=== PATIENT | female | born 1950 | race Caucasian/White ===

== ENCOUNTER 2018-08-01 16:17 | Outpatient (CLI) | payer MEDICARE, OTHER, SELFPAY ==
--- NOTE | 2018-08-01 16:00 | DI.CT_ITS ---
SYMPTOM/DIAGNOSIS: LLQ PAIN, R10.32, H/O DIVERTICULITIS ABDOMEN AND PELVIC CT: CT examination of the abdomen and pelvis was performed with intravenous infusion of 100 cc's of Omnipaque 350. Images obtained through the lung bases show an incompletely imaged nodule of the left lung base which measures at least 6 mm. in diameter. Chest CT recommended for further evaluation. The liver is unremarkable in appearance except for a small rounded, exophytic lesion of the posterior aspect of the right hepatic lobe which appears to have been present on previous CT of 11/19/2010 and is consistent with benign process. Spleen and pancreas are unremarkable in appearance. Gallbladder and bile ducts are CT normal. No significant abdominal wall hernia is seen. No abdominal or pelvic adenopathy is seen. Appendix is not specifically identified but there is no evidence of appendicitis or diverticulitis. Abdominal aorta is of normal diameter and no major vascular abnormality is seen. Adrenals and kidneys unremarkable in appearance except for an incidental small left renal cyst. Left ovarian low attenuation lesion noted measuring about 36 mm. in greatest diameter. This may represent a cyst but complex lesion not excluded on CT. Pelvic ultrasound requested for further evaluation. CONCLUSION: 1. No evidence of acute intra-abdominal process. 2. Incidental left ovarian, low attenuation mass, pelvic ultrasound requested for correlation. 3. Incompletely imaged left lower lobe pulmonary nodule which measures at least 6 mm. in diameter and could be considerably larger. Chest CT recommended for further evaluation.
[2018-08-01 17:38] LABS: CREATININE 0.82 mg/dL (0.55-1.02)
[2018-08-01] MEDS: Omnipaque 350 MG/ML 100 ML BTL IJ (18:04)
--- NOTE | 2018-08-01 18:52 | DI.VRAD_ITS ---
EXAM: CT Abdomen and Pelvis With Contrast EXAM DATE/TIME: 08/01/2018 4:08 PM CLINICAL HISTORY: 67 years old, female; Pain; Abdominal pain; Localized; Left lower quadrant (llq); Patient HX: Llq pain; Additional info: HX of diverticulitis TECHNIQUE: Imaging protocol: Axial computed tomography images of the abdomen and pelvis with intravenous contrast. Coronal and sagittal reformatted images were created and reviewed. COMPARISON: No relevant prior studies available. FINDINGS: Lower thorax: partially viewed 6 mm nodule in the posterior segment of the left lower lobe (4/1). ABDOMEN: Liver: 1.5 cm exophytic mass in the posterior right hepatic lobe. Gallbladder and bile ducts: Normal. No calcified stones. No ductal dilation. Pancreas: Normal. No ductal dilation. Spleen: Normal. No splenomegaly. Adrenals: Normal. No mass. Kidneys and ureters: 8 mm cyst in the left kidney. Stomach and bowel: Distal colonic diverticulosis without diverticulitis. Appendix: Unable to identify the appendix. PELVIS: Bladder: Unremarkable as visualized. Reproductive: 3.5 cm left ovarian cyst. ABDOMEN and PELVIS: Intraperitoneal space: Normal. No free air. No significant fluid collection. Bones/joints: No acute fracture. No dislocation. Soft tissues: Small umbilical hernia containing fat, uncomplicated. Vasculature: Normal. No abdominal aortic aneurysm. Lymph nodes: Normal. No enlarged lymph nodes. IMPRESSION: 1. partially viewed 6 mm nodule in the posterior segment of the left lower lobe. Consider chest CT. 2. 1.5 cm exophytic mass in the posterior right hepatic lobe. MRI may be helpful for further evaluation if clinically relevant. 3. 8 mm cyst in the left kidney. 4. 3.5 cm left ovarian cyst. Close followup is recommended to exclude underlying ovarian malignancy. 5. Distal colonic diverticulosis without diverticulitis. Dictated and Authenticated by: Alverto Weems MD. Ordering:AGUSTO Gilman MD
== END 2018-08-01 16:37 ==
PROVIDERS: PCP Nurse Practitioner Family; Visit Provider Nurse Practitioner Family
DX: R10.32 Left lower quadrant pain (principal); K57.92 Diverticulitis of intestine, part unspecified, without perforation or abscess without bleeding; N83.9 Noninflammatory disorder of ovary, fallopian tube and broad ligament, unspecified; R91.1 Solitary pulmonary nodule
CPT/HCPCS: 74177; 82565; J3490

== ENCOUNTER 2018-08-07 00:30 | Outpatient (CLI) | payer MEDICARE, OTHER, SELFPAY ==
--- NOTE | 2018-08-07 09:12 | DI.CT_ITS ---
SYMPTOM/DIAGNOSIS: F/U LLL NODULE SEEN ON ABD/PELVIC CT, R91.[address]: CT examination of the chest was performed with a bolus infusion of 70 cc's of Omnipaque 350. Today's examination was obtained to evaluate a nodule identified on recent abdominal CT which measured about 6 mm. in greatest diameter. The nodule is more clearly seen on today's examination and only measures about 4 mm. in diameter. An additional 3-4 mm. nodule is also seen in the left lower lobe. A tiny calcified nodule also seen in the left lower lobe. No mediastinal or hilar adenopathy. No pulmonary consolidation. No pleural effusion. No evidence of pulmonary embolic disease. No aortic aneurysm or dissection. Tracheobronchial tree appears intact. Images obtained through the upper abdomen show unremarkable appearance of visualized portions of the liver and spleen. CONCLUSION: 4 mm. left basilar intrapulmonary nodule. Follow up chest CT, noncontrast, low dose, recommended in 12 months.
== END 2018-08-07 00:50 ==
PROVIDERS: PCP Nurse Practitioner Family; Visit Provider Nurse Practitioner Family
DX: R91.1 Solitary pulmonary nodule (principal)
CPT/HCPCS: 71260

== ENCOUNTER 2018-08-15 02:21 | Outpatient (CLI) | payer MEDICARE, OTHER, SELFPAY ==
--- NOTE | 2018-08-15 13:53 | DI.US_ITS ---
SYMPTOMS/DIAGNOSIS: F/U LEFT OVARIAN MASS ON ABDOMINAL CT, N83.9 PELVIC ULTRASOUND: Transabdominal and transvaginal exams were performed. Comparison was made with CT of the abdomen and pelvis dated July,, which showed a 3.6 cm low attenuation lesion of the left ovary. The uterus measures 5.7 x 2.8 x 3.8 cm. There is a 2 cm fundal fibroid and a 1.9 cm posterior myometrial fibroid. The endometrial stripe measures 1 mm in thickness. There is a 3.2 cm simple-appearing cyst of the left ovary. There is no wall thickening, or septations or evidence of a mural nodule or vascularity. The right ovary is normal in size and appearance. No free fluid or hydronephrosis is seen. The bladder appears normal. IMPRESSION: A 3.2 cm simple cyst of the left ovary. Uterine fibroids.
== END 2018-08-15 02:41 ==
PROVIDERS: PCP Nurse Practitioner Family; Visit Provider Nurse Practitioner Family
DX: N83.9 Noninflammatory disorder of ovary, fallopian tube and broad ligament, unspecified (principal); N83.292 Other ovarian cyst, left side; D25.9 Leiomyoma of uterus, unspecified
CPT/HCPCS: 76830; 76856

== ENCOUNTER 2018-09-17 07:53 | Outpatient (CLI) | payer MEDICARE, OTHER, SELFPAY ==
[2018-09-17 08:56] LABS: Hemoglobin A1C 5.6 % (4.5-6.2)
[2018-09-17 09:21] LABS: Anion Gap 13.5 mmol/L (3-11); BUN 15 mg/dL (7-18); CO2 22.5 mmol/L (21.0-32.0); CREATININE 0.97 mg/dL (0.55-1.02); Calcium 8.7 mg/dL (8.5-10.1); Chloride 104 mmol/L (98-107); Cholesterol 238 mg/dL (50-200); Estimated GFR 57.28 (mL/min/1.73m2); Glucose 100 mg/dL (70-100); HDL Cholesterol 43 mg/dL (40-60); LDL CHOLESTEROL 161 mg/dL (<100); Potassium 4.2 mmol/L (3.5-5.1); Sodium 140 mmol/L (136-145); Triglyceride 127 mg/dL (30-150)
== END 2018-09-17 08:13 ==
PROVIDERS: PCP Nurse Practitioner Family; Visit Provider Nurse Practitioner Family
DX: E78.5 Hyperlipidemia, unspecified (principal); R73.01 Impaired fasting glucose
CPT/HCPCS: 36415; 80048; 80061; 83721; 83036